=== PATIENT | female | born 1945 | race Two or more races ===

== ENCOUNTER 2016-11-18 21:14 | Observation (INO) | payer OTHER ==
--- NOTE | ~2016-11-18 | US67 ---
[facility] A Service of [facility] RADIOLOGY TEXT RESULTS PATIENT: DARIANA PLAZA LOCATION: CEDOF : [birth year] UNIT #: [id number] AGE: [address]: Enrique Moreau MD SEX: F ORDER DR: [id number] [address] [place] [id number] [facility]. [place], [place] [address] [id number] I MR#: [id number] #: [id number] NAME: DARIANA PLAZA : 1945 SEX: F STUDY DATE/TIME: 11/19/2016 10:14 UNIT: CEDOF ROOM: 64234 STUDY DESCRIPTION: US Gallbladder Attending Physician: Enrique Moreau M.D. Ordering Physician: Bernadette Diaz M.D. Primary Care Physician: No Primary Care Physician MEDICAL IMAGING REPORT This report is preliminary unless electronic signature is present EXAM Right quadrant ultrasound INDICATIONS Chest and abdominal pain for 3 days. Elevated alkaline phosphatase. COMPARISON None available. FINDINGS Pancreas is normal. Echogenicity echotexture of the hepatic parenchyma is normal. No hepatic mass. The intrahepatic and extrahepatic bile ducts are normal in caliber. The common duct is normal in size at the madina hepatis measuring 3 mm. The gallbladder is normal. No gallstones. Right kidney measures 9.6 cm in length. Renal cortical thickness and echogenicity is normal. No hydronephrosis. No ascites. IMPRESSION 1. Negative right upper quadrant ultrasound. No gallstones. Dictated by... Armani Gonzalez M.D. THIS IS AN ELECTRONICALLY VERIFIED REPORT Armani Gonzalez M.D. at 11/20/2016 10:43 AM RPC/rnnoé [facility] A Service of [facility] RADIOLOGY TEXT RESULTS PATIENT: DARIANA PLAZA LOCATION: CEDOF : [birth year] UNIT #: [id number] AGE: [address]: Enrique Moreau MD SEX: F ORDER DR: TD: 11/20/2016 02:42 JOB #: [id number] MEDICAL IMAGING REPORT Page 1 of 1 COPY
--- NOTE | ~2016-11-18 | EKG ---
PATIENT: DARIANA PLAZA UNIT #: [id number] Ventricular Rate: 68 BPM Atrial Rate: 68 BPM P-R Interval: 178 ms QRS Duration: 88 ms Q-T Interval: 408 ms QTC Calculation(Bezet): 433 ms P Wagener: 66 degrees Calculated R Wagener: 13 degrees Calculated T Wagener: 58 degrees Diagnosis Line: Normal sinus rhythm Diagnosis Line: Septal infarct , age undetermined Diagnosis Line: Abnormal ECG Diagnosis Line: No previous ECGs available Diagnosis Line: Confirmed by ALEJANDRO NAYLOR MD ([id number]) on 11/22/2016 Diagnosis Line: 10:30:38 PM INTERPRETING MD: CYNDY DEL VALLE
--- NOTE | ~2016-11-18 | OR ---
Unit #: [id number] #: [id number] Patient: DARIANA PLAZA [id number] [address] [address] [id number] I MR#: [id number] NAME: DARIANA PLAZA ROOM: 71907 Date of Procedure: 11/19/2016 Admission Date: 11/18/2016 Surgeon: Bruce Arellano M.D. : 1945 Attending Physician: Enrique Moreau M.D. OPERATIVE REPORT PREOPERATIVE DIAGNOSES Epigastric pain. PROCEDURE PERFORMED Upper gastrointestinal endoscopy. POSTOPERATIVE DIAGNOSIS Completely normal examination up to third part of duodenum. RECOMMENDATIONS 1. Allow regular diet. 2. The patient will be discharged home from GI standpoint. SEDATION USED Procedural sedation. DESCRIPTION OF PROCEDURE Following detailed explanation of the potential risks and complications of an upper endoscopy, the patient was laid in left lateral decubitus position. The procedure was done in the emergency room. Incremental conscious sedation using Versed was given. Lubricated tip of the Olympus video upper endoscope was passed through the bite block into the proximal esophagus under direct vision. The entire esophageal mucosa was examined and appeared normal. Z-line was nicely demarcated, there being no esophagitis or hiatus hernia. The scope was then advanced into the gastric cavity, the latter was insufflated. Mucosa of the fundus, body, and antrum was examined and appeared unremarkable. Pylorus was intubated with visualization of the normal duodenal bulb and second and third part of the duodenum. Upon withdrawal and retroflexion, incisura, cardia, and greater curve examined and no additional findings noted. The scope was then withdrawn in the distal esophagus. The entire esophageal mucosa was examined all the way up to pharynx. No additional findings noted. The patient tolerated the procedure without any postprocedure complications. Dictated by... Akua Elizabeth/agustín Unit #: [id number] #: [id number] Patient: DARIANA PLAZA TD: 11/20/2016 05:47 JOB #: [id number] OPERATIVE REPORT Page 1 of 1 X Bruce Arellano MD PROCEDURE OPERATIVE NOTE
--- NOTE | ~2016-11-18 | CR72 ---
[facility] A Service of [facility] RADIOLOGY TEXT RESULTS PATIENT: DARIANA PLAZA LOCATION: CEDOF [id number] : [birth year] UNIT #: [id number] AGE: [address]: Enrique Moreau MD SEX: F ORDER DR: [id number] [facility] [address] [facility]. [place], [place] [address] [id number] I MR#: [id number] Acc #: [id number] NAME: DARIANA PLAZA : 1945 SEX: F STUDY DATE/TIME: 11/18/2016 20:03 UNIT: CEDOF ROOM: 11307 STUDY DESCRIPTION: CR Chest Single View Portable Attending Physician: Enrique Moreau M.D. Ordering Physician: Bernadette Diaz M.D. Primary Care Physician: Primary Care Physician No MEDICAL IMAGING REPORT This report is preliminary unless electronic signature is present EXAM Portable chest HISTORY Chest pain and weakness today. FINDINGS A single AP portable view of the chest shows both lungs to be clear. The heart is normal in size. The mediastinal contour is normal. No significant bone abnormalities are seen. IMPRESSION Normal portable chest. Dictated by... Deandre Luo M.D. THIS IS AN ELECTRONICALLY VERIFIED REPORT Deandre Luo M.D. at 11/19/2016 1:30 PM Marcus TD: 11/19/2016 09:58 JOB #: [id number] MEDICAL IMAGING REPORT Page 1 of 1 COPY
--- NOTE | ~2016-11-18 | ST ---
Unit #: [id number] #: [id number] Patient: DARIANA PLAZA [id number] [address] [address] [id number] I MR#: [id number] NAME: DARIANA PLAZA : 1945 SEX: F STUDY DATE/TIME: 11/19/2016 UNIT: CEDOF ROOM: 24382 STUDY DESCRIPTION: Stress nuclear test Attending Physician: Enrique Moreau M.D. Primary Care Physician: No Primary Care Physician CARDIOLOGY REPORT CORRECTED REPORT DESCRIPTION Baseline heart rate is 68 beats per minute, blood pressure 173/84. The patient exercised under standard Messi protocol for 5 minutes. Achieved peak heart rate of 142 beats per minute, which is 94% of predicted heart rate and peak blood pressure was 160/100. The patient's baseline EKG showing normal sinus rhythm, normal EKG. During exercise recovery, no further ST-T changes. Patient also received 9.30 mCi of Cardiolite at rest and 31.1 mCi of Cardiolite during stress. Both sets of images were compared. Patient shows fairly uniform uptake of radiotracer. No defect was noted. Patient also has gated SPECT scan done which showed normal LV size and function. No wall motion abnormality detected. Ejection fraction is 78%. INTERPRETATION OF THE TEST 1. Average exercise tolerance. 2. Appropriate hemodynamic response. 3. EKG is negative for stress induced ischemia. 4. Nuclear part of the test negative for myocardial ischemia. 5. Gated SPECT scan shows normal LV size and function. Dictated by... Akua Dumont/summer TD: 11/19/2016 16:44 JOB #: [id number] CC: Louise/invision Please Delete CARDIOLOGY REPORT Page 1 of 1 X Joni Majano MD CARDIOLOGY REPORT
--- NOTE | ~2016-11-18 | CO ---
Unit #: [id number] #: [id number] Patient: DARIANA WARNER [id number] [address] [address] [id number] I MR#: [id number] NAME: DARIANA WARNER ROOM: 93183 Age: 71 Sex: F Admission Date: 11/18/2016 : 1945 Attending Physician: Enrique Moreau M.D. Consultation Date: 11/19/2016 CONSULTATION REPORT REASON FOR CONSULTATION Epigastric pain. HISTORY OF PRESENT ILLNESS Ms. Warner is a 71-year-old female with history was obtained through principal programmer. The patient presented with 2 days history of epigastric pain. In addition, she also has history of left chest pain with radiation to left arm along with some shortness of breath. The patient has had echocardiogram and serial cardiac enzymes and EKGs and has been ruled out for a cardiac etiology or myocardial infarct. She also has history of abdominal pain. There is no relationship with meals. The pain has been only present in a couple of days. The pain does not radiate to the back or to the right shoulder. PAST MEDICAL HISTORY Significant for history of hypertension, and hypothyroidism. PAST SURGICAL HISTORY Included no previous surgeries. HOME MEDICATIONS Include levothyroxine. ALLERGIES She has no known drug allergies. SOCIAL HISTORY She does not smoke or drink alcohol. She is quite active and drives. FAMILY HISTORY There is no family history of colon, pancreatic cancer, or liver disease. REVIEW OF SYSTEMS Detailed review of organ systems does not reveal any recent weight loss. No history of fever, chills, or rigors. No history of headache, seizures, or syncope. No history of cough, expectoration, or hemoptysis. No history of dysuria, hematuria, or pyuria. No history focal seizures or extremity weakness. Rest of the review of organ system is unremarkable. PHYSICAL EXAMINATION GENERAL: She is alert and oriented, appears comfortable. VITAL SIGNS: Stable with a temperature of 98.1, pulse 71 per minute and regular, respiratory rate is 17, blood pressure is 119/76. HEENT: She has no pallor, icterus, lymphadenopathy, or peripheral edema. Unit #: [id number] #: [id number] Patient: DARIANA WARNER CARDIOVASCULAR: Normal heart sounds. No murmurs on auscultation. LUNGS: Over the lungs reveal normal breath sounds. Good air entry. ABDOMEN: Soft and nontender. Liver and spleen are not palpable. Bowel sounds normal. DIAGNOSTIC STUDIES LABORATORY RESULTS: Reveals a hemoglobin of 11.3 with MCV 76.3, white count is 3.0, platelet count is 191. Serum chemistry shows a normal BUN and creatinine. Serum sodium is 130 and potassium 3.4. LFTs are normal. Lipase is also normal. Cardiac enzymes are normal. Urinalysis reveals 1+ leukocyte esterase positive, but no pyuria or bacteriuria. CLINICAL IMPRESSION 1. The patient with atypical chest pain. 2. Epigastric pain. The etiology is unclear as symptoms get better after eating; therefore, unlikely to be peptic ulcer disease. However, a diagnostic endoscopy is warranted in view of persistent of pain. 3. Underlying hypertension and hypothyroidism. The pros and cons of an upper endoscopy and potential risks and complications including possibility of perforation, bleeding, and complication related to sedation were discussed with the patient and she was reassured. Thank you for asking me to see this pleasant woman. I appreciate the consult. Dictated by... Akua Elizabeth/agustín TD: 11/21/2016 03:06 JOB #: [id number] CONSULTATION REPORT Page 1 of 1 X Bruce Arellano MD X CONSULTATION REPORT
--- NOTE | ~2016-11-18 | ST ---
Unit #: [id number] #: [id number] Patient: DARIANA PLAZA [id number] [address] [address] [id number] I MR#: [id number] NAME: DARIANA PLAZA : 1945 SEX: F STUDY DATE/TIME: 11/19/2016 UNIT: CEDOF ROOM: 36168 STUDY DESCRIPTION: Exercise stress test Attending Physician: Enrique Moreau M.D. Primary Care Physician: No Primary Care Physician CARDIOLOGY REPORT PROCEDURE PERFORMED Exercise Cardiolite stress test. PROCEDURE BASELINE EKG: Normal sinus rhythm with ventricular rate 67 beats per minute, Q waves in V1, left atrial abnormality. The patient walked on the treadmill for 5 minutes utilizing the Messi protocol, holding in stage 1 with a workload of 4.6 METS. She achieved 94% of the maximum target heart rate at 142 beats per minute with a maximum blood pressure response of 173/84 mmHg. EKG during the test was equivocal to baseline. No acute ischemic changes. The patient had no complaints of chest pain, except had continuous chest pressure that is worse with palpating the chest wall. Had some slight dizziness and shortness of breath, which resolved in the recovery phase. IMPRESSION 1. Functional class 3 with a workload of 4.6 METS. 2. Patient walked for 5 minutes achieving 94% of maximum target heart rate at 142 beats per minute with a blood pressure response of 173/84 mmHg. 3. EKG during the test was equivocal to baseline. No acute ischemic changes. 4. The patient continued to have some chest pressure especially with palpating the chest wall. Had some slight dizziness and shortness of breath, which resolved in recovery phase. 5. Cardiolite was injected at maximum target heart rate. Radionuclide test pending. Please correlate with nuclear images. 6. The patient had fairly poor exercise tolerance. Dictated by... Sil MayorgaP.R.NAsael for Akua Dumont/alva TD: 11/19/2016 12:04 JOB #: [id number] Unit #: [id number] #: [id number] Patient: DARIANA PLAZA CARDIOLOGY REPORT Page 1 of 1 X Marisa Shipman APRN CARDIOLOGY REPORT
--- NOTE | ~2016-11-18 | HP ---
Unit #: [id number] #: [id number] Patient: DARIANA PLAZA [id number] [address] [place], [place] [address] [id number] I MR#: [id number] NAME: DARIANA PLAZA ROOM: 96671 Age: 71 Sex: F Admission Date: 11/18/2016 : 1945 Attending Physician: Enrique Moreau M.D. Primary Care Physician: No Primary Care Physician HISTORY AND PHYSICAL CHIEF COMPLAINT Chest pain, epigastric pain. DISCUSSION This is a 71-year-old female who has history of hypertension and hypothyroidism who speaks "Argentine. History obtained through cloth finishing range tender" on the phone. She has epigastric and lower chest discomfort, epigastric pain for the last 3 days. She has MD2U primary medical doctor. EMS was called, and she was brought to the emergency room. She is mainly complaining of epigastric pain. She is pointing to the epigastric area, also lower chest wall pain. She was found to have mildly elevated blood pressure at 164/88. As per cloth finishing range tender, she says she ran out of medication one month ago. She has been out of medication. She denies any other complaint. No diaphoresis. No palpitations. No cough. No fever. No chills. PAST MEDICAL HISTORY 1. Questionable history of hypertension. 2. Hypothyroidism. PAST SURGICAL HISTORY She denies any surgical intervention. HOME MEDICATIONS She takes Levothyroxine and unknown questionable blood pressure medication. ALLERGIES No known drug allergies. SOCIAL HISTORY She does not smoke. She does not drink alcohol. No other illicit drug use. FAMILY HISTORY Negative history of premature coronary artery disease in the family. REVIEW OF SYSTEMS All review of systems negative except as in history of present illness. PHYSICAL EXAMINATION GENERAL: Middle-aged female lying in bed comfortably. Currently not in any distress. She is alert, awake, oriented x3. CURRENT VITALS: Temperature is 97.8, heart rate 66, respirations 18, blood pressure 164/88, oxygen saturation 97% on room air. HEENT: Pupils are equal and reactive to light and accommodation. Head is Unit #: [id number] #: [id number] Patient: DARIANA PLAZA normocephalic and atraumatic. NECK: Neck is supple. No JVD. HEART: S1, S2. Regular rate and rhythm. LUNGS: Lungs are clear to auscultation bilaterally. No rhonchi. No wheezing. ABDOMEN: Abdomen is soft, nontender, nondistended. Bowel sounds are positive. No guarding. No rigidity. EXTREMITIES: Inspection is normal. No cyanosis. No clubbing. No edema. SKIN: No rash. NEUROLOGIC: She is alert, oriented x3. Grossly intact. Cranial nerves II-XII intact. Power 5/5 on both sides. PSYCHIATRIC: She has normal mood, normal affect. DIAGNOSTIC STUDIES LABORATORY WORKUP: White count is 3.3, hemoglobin 12, hematocrit 35, platelets 198. INR is 1. Chemistry - Sodium 130, potassium 3.4, chloride 96, CO2 25, glucose 110, BUN 12, creatinine 0.9. LFTs within normal limits. BNP is 52. UA is clear. Troponin less than 0.05. IMAGING: Chest x-ray - Normal. No infiltrate. ASSESSMENT AND PLAN 1. Chest pain. Her symptoms sound like more epigastric pain than chest pain, but we will admit the patient to rule out acute coronary syndrome. Will get a nuclear stress test in the morning and echocardiogram. Also, will ask cardiology to evaluate. 2. Epigastric pain. I will also do GI workup for epigastric pain. Will get ultrasound of the gallbladder and clear liquid diet, IV Protonix. Ask Dr. Arellano for possible EGD if cardiac workup is negative. 3. Mildly elevated blood pressure. I will start the patient on Lopressor and monitor blood pressure. 4. History of hypothyroidism. Recheck TSH. She has been out of levothyroxine approximately for one month. 5. Mild hyponatremia. 6. Mild hypokalemia. Replace. 7. DVT prophylaxis. Will place the patient on SCDs. Dictated by Akua Riojas TD: 11/19/2016 08:12 JOB #: [id number] HISTORY AND PHYSICAL Page 1 of 1 X X HISTORY AND PHYSICAL
--- NOTE | ~2016-11-18 | CO ---
Unit #: [id number] #: [id number] Patient: DARIANA PLAZA [id number] [address] [address] [id number] I MR#: [id number] NAME: DARIANA PLAZA ROOM: 52058 Age: 71 Sex: F Admission Date: 11/18/2016 : 1945 Attending Physician: Enrique Moreau M.D. Primary Care Physician: Primary Care Physician No CONSULTATION REPORT REASON FOR CONSULTATION Chest pain/epigastric pain. HISTORY OF PRESENT ILLNESS In summary, this is a 71-year-old Mauritian non-Namibian speaking female with past medical history of hypothyroidism and hypertension. She was admitted secondary to complaints of left-sided chest wall pain described as aching with radiation into her left arm as well as shortness of air. That has been occurring for the last couple of days. The patient at this time her primary complaint appears to be more of an epigastric pain with associated nausea and vomiting x2 days. She denies any fever or chills. No sick contacts. Her epigastric region is somewhat tender to palpation. EKG shows normal sinus rhythm, rate of 68 beats per minute, Q waves are present in the septal leads, cannot rule out prior septal infarct. This was reviewed with Dr. Majano, however, and he does not feel that the patient has had an infarct in the past. Cardiac enzymes have thus far been negative x2. All information was gathered via pizzamaker as well as prior records and the chart as well as nursing staff. PAST MEDICAL HISTORY 1. Hypertension. 2. Hypothyroidism. PAST SURGICAL HISTORY No known past surgical history. HOME MEDICATIONS Levothyroxine, blood pressure pill unknown. ALLERGIES No known drug allergies. SOCIAL HISTORY She lives with her . She is again non-Namibian speaking. Denies any illicit drugs, tobacco use, or alcohol. FAMILY HISTORY Denies any history of coronary artery disease in her family. REVIEW OF SYSTEMS Negative except for what was stated above in the HPI. PHYSICAL EXAMINATION Unit #: [id number] #: [id number] Patient: DARIANA PLAZA GENERAL: This is a pleasant 71-year-old Mauritian female non-Namibian speaking. VITAL SIGNS: Temperature 97.8, respiratory rate 16, pulse is 60s, blood pressure 134/55, saturation 99% on room air. HEENT: Pupils are equal and round. Head is atraumatic and normocephalic. NECK: Supple. No JVD. Trachea is midline. HEART: S1 and S2. Regular rate and rhythm. No murmur. PULMONARY: Lungs are clear to auscultation. No adventitious breath sounds. No rales, no rhonchi, no wheezes. ABDOMEN: Soft, slightly tender to palpation. Bowel sounds are present. EXTREMITIES: Pulses are palpable. No clubbing, cyanosis, or edema. NEUROLOGIC: She is alert and oriented. She moves all extremities equally. Follows commands with ease. DIAGNOSTIC STUDIES LABORATORY RESULTS: Sodium 130, potassium 3.8, chloride 100, CO2 of 26, BUN 9, creatinine 0.7, glucose 114. Hemoglobin 11.3, hematocrit 32.6, WBCs 3.0, platelet count 191. Troponins have been less than 0.05. Urinalysis is negative. TSH is 0.17. IMAGING STUDIES: Chest x-ray is normal. No active disease. CARDIOVASCULAR STUDIES: EKG shows normal sinus rhythm, 68 beats per minute, septal infarct, age undetermined, QTc interval 433 msec, no acute ischemic changes noted. ASSESSMENT AND PLAN 1. Atypical chest pain. 2. Epigastric pain without history of alcohol or frequent NSAID use. 3. History of hypertension. 4. History of hypothyroidism. 5. Mild hyponatremia. The patient has been admitted secondary to atypical chest pain as well as epigastric pain. She has ruled out for acute coronary syndrome. We will check nuclear Cardiolite scan today as well as 2D echo. She has been started on beta-jorden therapy. The patient is also currently awaiting Gastroenterology workup. She currently has ultrasound of the gallbladder which is pending and GI has also been consulted to see. We will check a lipid panel to the blood in lab as well as adding free T3 and T4 to blood in lab. The patient will not be started on any aspirin for now secondary to epigastric pain until GI workup can rule out any gastric or duodenal ulcers. The patient was advised on the importance of exercise and lifestyle modification. It is notable that her fasting lipid panel did come back positive for elevated lipids with a total cholesterol of 223, LDL of 169, HDL of 31, LDL/HDL ratio of 5. The patient has been started on atorvastatin 40 mg p.o. q.h.s. She has been given a prescription for this and advised on potential side affects. She should follow up with her primary care physician for repeat lipid panel as well as liver function testing in the near future. If her cardiac stress test is negative, the patient could be discharged home today from a cardiac standpoint. Thank you for asking us to see this pleasant patient. We appreciate the Unit #: [id number] #: [id number] Patient: DARIANA PLAZA consult. Dictated by... Lavonne Moore A.P.R.N. for Akua Dumont/desireel TD: 11/21/2016 03:14 JOB #: [id number] CONSULTATION REPORT Page 1 of 1 X Lavonne Moore APRN X CONSULTATION REPORT
[2016-11-18 20:05] LABS: BASOPHIL% 0.8 % (0-2.5); EOSINOPHIL# 0.2 X10e3 (0-0.7); EOSINOPHIL% 4.7 % (0.0-7.0); HEMATOCRIT 35.8 % (35.0-45.0); HEMOGLOBIN 12.6 gm/dL (12.0-16.0); LYMPHOCYTE# 1.4 X10e3 (1.0-3.5); LYMPHOCYTE% 42.9 % (17.0-45.0); MEAN CELL VOLUME 75.9 FL (83-96); MEAN CORPUSCULAR HEMOGLOBIN 26.8 PG (28-34); MEAN CORPUSCULAR HGB CONC 35.3 g/dL (30-36); MEAN PLATELET VOLUME 7.4 FL (6.5-11.5); MONOCYTE# 0.3 X10e3 (0-1.0); MONOCYTE% 8.2 % (3.0-12.0); NEUTROPHIL# 1.4 X10e3 (1.5-7.1); NEUTROPHIL% 43.4 % (40-75); PLATELET COUNT 198 X10e3 (140-420); RED BLOOD COUNT 4.71 X10e (3.90-5.30); WHITE BLOOD COUNT 3.3 X10e3 (4.0-10.5)
[2016-11-18 20:06] LABS: DIFF IND NO
[2016-11-18 20:19] LABS: PARTIAL THROMBOPLASTIN TIME 30.8 SECONDS (23.5-31.3); PROTHROMBIN TIME (PATIENT) 10.3 SECONDS (9.6-11.5)
[2016-11-18 20:28] LABS: ALBUMIN SERUM 3.8 g/dL (3.5-5.0); BILIRUBIN, DIRECT 0.1 mg/dL (0.0-0.2); BILIRUBIN,INDIRECT 0.4 mg/dL (0.0-0.9); BILIRUBIN,TOTAL 0.5 mg/dL (0.2-2.0); BUN/CREATININE RATIO 13.33; CALCIUM SERUM 8.9 mg/dL (8.4-10.2); CREATININE SERUM 0.9 mg/dL (0.6-1.4); GLOM FILT RATE Estimated 65.3 mL/min (>60); POTASSIUM 3.4 mmol/L (3.5-5.1); PROTEIN TOTAL SERUM 6.7 g/dL (6.0-8.3)
[2016-11-18 20:43] LABS: URINE SOURCE CLEAN CATCH
[2016-11-18 20:49] LABS: URINE APPEARANCE CLEAR; URINE BILIRUBIN NEG (NEG); URINE BLOOD NEG (NEG); URINE COLOR YELLOW; URINE GLUCOSE NEG (NEG); URINE KETONE NEG (NEG); URINE LEUKOCYTE ESTERASE 1+ (NEG); URINE NITRATE NEG (NEG); URINE PH 7.5 (5-8); URINE PROTEIN NEG (NEG); URINE SPECIFIC GRAVITY 1.007 (1.003-1.035); URINE UROBILINOGEN 0.2 MG/DL (NEG)
[2016-11-18 20:51] LABS: URBCS1 AUWI 0-2 /[HPF] (0-2); URINE BACTERIA AUWI NEG (NEGATIVE); URINE SQUAMOUS EPITHELIAL CELL NONE SEEN /[HPF]
[2016-11-18 21:02] LABS: CULTURE INDICATED? NO
[2016-11-18 21:09] LABS: POC - CKMB <1.0 ng/mL (0.0-7.9); POC - TROPONIN <0.05 ng/mL (<=0.05)
[2016-11-18 23:56] LABS: POC - CKMB <1.0 ng/mL (0.0-7.9); POC - TROPONIN <0.05 ng/mL (<=0.05)
[2016-11-19 02:02] LABS: EOSINOPHIL# 0.1 X10e3 (0-0.7); EOSINOPHIL% 4.8 % (0.0-7.0); HEMATOCRIT 32.6 % (35.0-45.0); HEMOGLOBIN 11.3 gm/dL (12.0-16.0); LYMPHOCYTE# 1.4 X10e3 (1.0-3.5); LYMPHOCYTE% 45.5 % (17.0-45.0); MEAN CELL VOLUME 76.3 FL (83-96); MEAN CORPUSCULAR HEMOGLOBIN 26.4 PG (28-34); MEAN CORPUSCULAR HGB CONC 34.6 g/dL (30-36); MEAN PLATELET VOLUME 7.2 FL (6.5-11.5); MONOCYTE# 0.3 X10e3 (0-1.0); MONOCYTE% 8.6 % (3.0-12.0); NEUTROPHIL# 1.2 X10e3 (1.5-7.1); NEUTROPHIL% 40.1 % (40-75); PLATELET COUNT 191 X10e3 (140-420); RED BLOOD COUNT 4.27 X10e (3.90-5.30); RED CELL DISTRIBUTION WIDTH 13.2 % (11.0-15.5)
[2016-11-19 02:03] LABS: DIFF IND NO
[2016-11-19 02:21] LABS: CK TOTAL 43 IU/L (26-140)
[2016-11-19 02:25] LABS: BUN/CREATININE RATIO 12.85; CALCIUM SERUM 8.4 mg/dL (8.4-10.2); CREATININE SERUM 0.7 mg/dL (0.6-1.4); GLOM FILT RATE Estimated 88.4 mL/min (>60); POTASSIUM 3.8 mmol/L (3.5-5.1)
[2016-11-19 10:15] LABS: CK TOTAL 56 IU/L (26-140)
[2016-11-19 12:31] LABS: CHOLESTEROL 223 mg/dL (0-200); HDL CHOLESTEROL 31 mg/dL (35-95); LDL/HDL RATIO 5 RATIO (0-4); TRIGLYCERIDES 117 mg/dL (10-160)
[2016-11-19 12:33] LABS: LDL CHOLESTEROL 169 mg/dL (-130)
[2016-11-19 12:45] LABS: FREE T3 2.8 pg/mL (2.5-3.9)
[2016-11-19 12:46] LABS: FREE THYROXIN (T4) 0.91 ng/dL (0.58-1.64)
== END 2016-11-19 22:21 | disposition home or self-care (01) | DRG 392 ==
LOC: CED 21:14 → CEDOF 22:15
PROVIDERS: Internal Medicine; Nurse Practitioner; Student in an Organized Health Care Education/Training Program
DX: R10.13 Epigastric pain (principal); R07.89 Other chest pain; E87.1 Hypo-osmolality and hyponatremia; E87.6 Hypokalemia; I10 Essential (primary) hypertension; E03.9 Hypothyroidism, unspecified
CPT/HCPCS: 36415; 71010; 76705; 78452; 80048; 80061; 80076; 81003; 82550; 82553; 83690; 83880; 84439; 84443; 84481; 84484; 85025; 85610; 85730; 93005; 93017; 93306; 96361; 96374; 96375; 99285; A9500; C9113; J2250; J2405; J3010